=== PATIENT | female | born 1965 | race Caucasian/White ===

== ENCOUNTER → 2016-12-10 | Outpatient (CLI) | payer OTHER ==
[~2016-12-10] MED LIST: ACETAMINOPHEN650 M3 PO; ACID CONTROL150 M1 PO; ALBUTEROL0.83 MG/ML INH; ALBUTEROL17 GM INH; ALBUTEROL20 ml INH; AMITRYPTYLINE PO; AMLODIPINE BESYL5 MG PO; AMOXICILLIN500 M1 PO; APIDRA (NF100 UNITS/ SUBQ; ASPIRIN81 MG PO; ATORVASTATIN CA80 MG PO; AUGMENTIN PO; BACITRACIN15 GM TP; BACTRIM DS TABL1 TA1 PO; BUTALB-ACETAMI1 EACH PO; CARVEDILOL6.25 MG PO; CEFEPIME 22 GM/100 M IV; CELEXA PO; CEPHALEXIN500 M1 PO; CHEWABLE ASPIRI81 MG PO; CIPRO PO; CIPRO XR 500 M500 MG PO; CLARITIN10 MG PO; CLEOCIN PO; CLEOCIN150 MG PO; CLINDAMYCIN HC300 MG PO; CLOPIDOGREL BIS75 MG PO; CLOPIDOGREL75 MG PO; COLACE PO; COREG12.5 M1; COREG6.25 MG PO; CYMBALTA PO; DULOXETINE HCL30 MG PO; FAST RELIEF LAX10 MG RC; FERROUS GLUCON325 M1 PO; FUROSEMIDE40 MG PO; GABAPENTIN800 MG PO; HUMALOG100 U/M1 SUBQ; HUMALOG100 U/M2 SUBQ; HUMALOG100 U/ML; HUMALOG100 U/ML SQ; HUMALOG100 U/ML SUBQ; HUMULIN N VIAL SQ; HUMULIN N300 U/3 ML SUBQ; HUMULIN R100 U/ML SUBQ; HUMULIN R500 UNIT/1; HYDROCODON-ACE1 EACH PO; HYDROCODONE-APA1 T42 PO; IBUPROFEN800 MG PO; IMDUR-ER30 M1 PO; IMDUR-ER30 MG PO; IMDUR-ER60 M1 PO; INVOKANA100 MG PO; JANUVIA; JANUVIA PO; JANUVIA100 MG PO; K-DUR10 MEQ PO; KCL PO; KEFLEX500 M1 PO; KLOR-CON PO; LANTUS INSULIN SQ; LANTUS SOLOSTAR3 ML SUBQ; LANTUS100 U/ML SUBQ; LANTUS100 UNITS/ SUBQ; LASIX PO; LEVAQUIN750 M1 PO; LIPITOR40 MG PO; LIPITOR80 MG PO; LISINOPRIL PO; LISINOPRIL-HCTZ1 T14 PO; LISINOPRIL20 MG PO; LORTAB 5/500 TA1 TA1 PO; LYRICA PO; LYRICA300 MG PO; METFORMIN HCL500 M1 PO; METFORMIN PO; METOPROLOL SUCC25 MG PO; MONTELUKAST SOD10 MG PO; MUCINEX D ER T1 EACH PO; MUCINEX100 MG/5 M PO; MUCUS ER600 MG PO; NEURONTIN800 MG PO; NITROSTAT0.4 MG; NITROSTAT0.4 MG SL; NORCO 5/325 TAB1 TAB PO; NORCO1 TAB 10/3 PO; NORVASC; NORVASC PO; NOVOLIN N100 UNIT/1 SUBQ; OMEPRAZOLE20 M1 PO; ONDANSETRO4 MG/UDTAB PO; PLAVIX PO; PRILOSEC20 M1 PO; PROMETHAZINE D118 ML PO; QUDEXY XR100 MG PO; SINGULAIR PO; SYMBICORT 160/4.6 GM INH; SYMBICORT INH; SYMBICORT80 INH; TRAZODONE HCL100 MG PO; VENLAFAXINE H37.5 M1 PO; VENLAFAXINE H37.5 M2 PO; VITAMIN D 2 PO; VITAMIN D2400 UNIT PO; VITAMIN D350000 UNIT PO; VITAMIN D50000 UNIT PO; WEIGHT LOSS MED PO; WELLBUTRIN XL150 M1 PO; ZESTORETIC 20/11 TAB PO; ZOFRAN ODT4 MG PO; ZOFRAN PO; ZYLOPRIM100 MG; ZYLOPRIM100 MG PO; [UNRECOGNIZED DRUG - REMARK] PO
[2016-12-10 11:33] LABS: ALBUMIN SERUM 3.1 g/dL (3.5-5.0); ALKALINE PHOSPHATASE 117 U/L (32-92); ALT (SGPT) 28 U/L (10-40); AST (SGOT) 20 U/L (10-42); BILIRUBIN,TOTAL 0.4 mg/dL (0.2-2.0); BLOOD UREA NITROGEN 29 mg/dL (9-23); BUN/CREATININE RATIO 26.36; CALCIUM SERUM 8.9 mg/dL (8.4-10.2); CARBON DIOXIDE 27 mmol/L (22-31); CHLORIDE 106 mmol/L (100-111); CHOLESTEROL 163 mg/dL (0-200); CREATININE SERUM 1.1 mg/dL (0.6-1.4); GLOM FILT RATE Estimated 55.7 mL/min (>60); GLUCOSE FASTING 123 mg/dL (70-110); HDL CHOLESTEROL 32 mg/dL (35-95); POTASSIUM 4.6 mmol/L (3.5-5.1); PROTEIN TOTAL SERUM 5.9 g/dL (6.0-8.3); SODIUM 140 mmol/L (135-145)
[2016-12-10 11:34] LABS: TRIGLYCERIDES 415 mg/dL (10-160)
== END | disposition home or self-care (01) ==
LOC: CLAB 10:01
PROVIDERS: Internal Medicine Endocrinology, Diabetes & Metabolism
DX: E11.22 Type 2 diabetes mellitus with diabetic chronic kidney disease (principal); E11.65 Type 2 diabetes mellitus with hyperglycemia; N18.3 Chronic kidney disease, stage 3 (moderate); Z68.35 Body mass index [BMI] 35.0-35.9, adult
CPT/HCPCS: 36415; 80053; 80061; 83036

== ENCOUNTER 2017-01-06 09:33 | Emergency (ER) | payer OTHER ==
[2017-01-06 09:24] LABS: INFLUENZA A NEG (NEG); INFLUENZA B NEG (NEG)
[~2017-01-06 09:33] MED LIST changes: -ALBUTEROL20 ml INH; -CHEWABLE ASPIRI81 MG PO; -CLOPIDOGREL BIS75 MG PO; -HUMULIN R500 UNIT/1; -IMDUR-ER30 MG PO; -JANUVIA; -K-DUR10 MEQ PO; -KEFLEX500 M1 PO; -METOPROLOL SUCC25 MG PO; -NORVASC; -OMEPRAZOLE20 M1 PO; -SYMBICORT 160/4.6 GM INH; -VITAMIN D350000 UNIT PO; -ZOFRAN ODT4 MG PO; -ZYLOPRIM100 MG
[2017-01-06 10:28] LABS: BASOPHIL# 0.1 X10e3 (0-0.3); BASOPHIL% 0.8 % (0-2.5); EOSINOPHIL# 0.2 X10e3 (0-0.7); EOSINOPHIL% 3.2 % (0.0-7.0); HEMATOCRIT 43.6 % (35.0-45.0); HEMOGLOBIN 14.1 gm/dL (12.0-16.0); LYMPHOCYTE# 1.8 X10e3 (1.0-3.5); LYMPHOCYTE% 23.4 % (17.0-45.0); MEAN CELL VOLUME 80.5 FL (83-96); MEAN CORPUSCULAR HGB CONC 32.3 g/dL (30-36); MEAN PLATELET VOLUME 9.3 FL (6.5-11.5); MONOCYTE# 0.4 X10e3 (0-1.0); MONOCYTE% 5.9 % (3.0-12.0); NEUTROPHIL% 66.7 % (40-75); PLATELET COUNT 226 X10e3 (140-420); RED BLOOD COUNT 5.42 X10e (3.90-5.30); RED CELL DISTRIBUTION WIDTH 16.8 % (11.0-15.5); WHITE BLOOD COUNT 7.5 X10e3 (4.0-10.5)
[2017-01-06 10:29] LABS: DIFF IND NO
[2017-01-06 10:33] LABS: URINE SOURCE CLEAN CATCH
[2017-01-06 10:40] LABS: URINE APPEARANCE CLOUDY; URINE BILIRUBIN NEG (NEG); URINE BLOOD 1+ (NEG); URINE COLOR YELLOW; URINE GLUCOSE >1000 MG/DL (NEG); URINE KETONE TRACE (NEG); URINE LEUKOCYTE ESTERASE 1+ (NEG); URINE NITRATE NEG (NEG); URINE PROTEIN 3+ (NEG); URINE SPECIFIC GRAVITY 1.028 (1.003-1.035); URINE UROBILINOGEN 0.2 MG/DL (NEG)
[2017-01-06 10:43] LABS: CULTURE INDICATED? YES; URINE BACTERIA AUWI 4+ (NEGATIVE); URINE SQUAMOUS EPITHELIAL CELL OCC /[HPF]; UWBCS1 AUWI 200-300 (0-5)
[2017-01-06 11:14] LABS: ALBUMIN SERUM 3.7 g/dL (3.5-5.0); ALKALINE PHOSPHATASE 168 U/L (32-92); ALT (SGPT) 26 U/L (10-40); AMYLASE 20 U/L (0-46); AST (SGOT) 18 U/L (10-42); BILIRUBIN,TOTAL 0.6 mg/dL (0.2-2.0); BLOOD UREA NITROGEN 24 mg/dL (9-23); CARBON DIOXIDE 26 mmol/L (22-31); CHLORIDE 96 mmol/L (100-111); CREATININE SERUM 1.2 mg/dL (0.6-1.4); GLOM FILT RATE Estimated 52.3 mL/min (>60); GLUCOSE FASTING 494 mg/dL (70-110); LIPASE 43 U/L (22-51); POTASSIUM 4.2 mmol/L (3.5-5.1); PROTEIN TOTAL SERUM 7.6 g/dL (6.0-8.3); SODIUM 132 mmol/L (135-145)
[2017-01-06 11:16] LABS: BILIRUBIN, DIRECT <0.1 mg/dL (0.0-0.2); BILIRUBIN,INDIRECT 0.5 mg/dL (0.0-0.9)
[2017-03-29] MEDS ORDERED: ALBUTEROL20 ml INH (12:25)
[2017-03-29] MEDS ORDERED: ZYLOPRIM100 MG (12:26)
[2017-03-29] MEDS ORDERED: HUMULIN R500 UNIT/1 SUBQ (12:29)
[2017-03-29] MEDS ORDERED: VITAMIN D350000 UNIT PO (12:29)
[2017-03-29] MEDS ORDERED: FUROSEMIDE40 MG PO (12:29)
[2017-03-29] MEDS ORDERED: COREG12.5 M1 (12:30)
[2017-03-29] MEDS ORDERED: CLOPIDOGREL BIS75 MG PO (12:30)
[2017-03-29] MEDS ORDERED: LYRICA300 MG PO (12:30)
[2017-03-29] MEDS ORDERED: OMEPRAZOLE20 M1 PO (12:31)
[2017-03-29] MEDS ORDERED: SYMBICORT 160/4.6 GM INH (12:32)
[2017-03-29] MEDS ORDERED: MONTELUKAST SOD10 MG PO (12:33)
[2017-03-29] MEDS ORDERED: METOPROLOL SUCC25 MG PO (12:33)
[2017-07-02] MEDS ORDERED: TRESIBA FL100 UNIT/1 SUBQ (18:16)
== END 2017-01-06 13:28 | disposition home or self-care (01) ==
LOC: CED 09:33
PROVIDERS: Emergency Medicine
DX: N39.0 Urinary tract infection, site not specified (principal); E11.65 Type 2 diabetes mellitus with hyperglycemia
CPT/HCPCS: 36415; 80048; 80076; 81003; 82150; 83690; 85025; 87086; 87088; 87186; 87804; 96361; 96374; 96375; 99284; J0500; J1815; J2405

== ENCOUNTER 2017-01-06 21:14 | Emergency (ER) | payer OTHER ==
--- NOTE | ~2017-01-06 | CT4 ---
[facility] A Service of [facility] RADIOLOGY TEXT RESULTS PATIENT: MARY KATE LUCAS LOCATION: [facility] : 65 UNIT #: [id number] AGE: [address]: Jose Bender MD SEX: F ORDER DR: [id number] [facility] [address] [place], [place] [address] [id number] MR#: [id number] Acc #: [id number] NAME: MARY KATE LUCAS : 1965 SEX: F STUDY DATE/TIME: 01/06/2017 21:55 UNIT: EILS ROOM: STUDY DESCRIPTION: CT Abd and Pelv Wo Cont Attending Physician: Jose Bender M.D. Ordering Physician: Jose Bender M.D. Primary Care Physician: No Primary Care Physician MEDICAL IMAGING REPORT This report is preliminary unless electronic signature is present EXAM CT abdomen and pelvis without contrast. HISTORY Nausea, vomiting, and diarrhea starting this morning. Diffuse abdominal pain, periumbilical region. TECHNIQUE Axial images performed through the abdomen and pelvis without contrast. Multiplanar reconstructed images reviewed at a workstation. This CT exam was performed with one or more of the following radiation dose reduction techniques: automatic exposure control, adjustment of mA and/or kV according to patient size, and iterative reconstruction. FINDINGS Lung bases unremarkable. Liver demonstrates diffuse fatty infiltration. The gallbladder and spleen appear normal. Pancreas, kidneys, and adrenal glands are unremarkable. No free air or free fluid. The visualized GI tract unremarkable. Retroperitoneum unremarkable. PELVIS: Bladder, uterus, and adnexa appear normal. Diffuse degenerative change noted of the lumbar spine. Small umbilical hernia containing omental fat only. Generalized obesity. IMPRESSION 1. No acute intraabdominal or intrapelvic pathology identified. 2. Diffuse hepatic steatosis. 3. Multilevel degenerative disc changes of the lumbar spine. Dictated by... [facility] A Service of [facility] RADIOLOGY TEXT RESULTS PATIENT: MARY KATE LUCAS LOCATION: [facility] : 65 UNIT #: [id number] AGE: [address]: Jose Bender MD SEX: F ORDER DR: Marcus Honeycutt M.D. THIS IS AN ELECTRONICALLY VERIFIED REPORT Marcus Honeycutt M.D. at 01/07/2017 8:10 PM JOSUE/yinka TD: 01/07/2017 11:47 JOB #: [id number] MEDICAL IMAGING REPORT Page 1 of 1 COPY
[2017-01-06 23:10] LABS: BASOPHIL# 0.1 X10e3 (0-0.3); BASOPHIL% 0.7 % (0-2.5); EOSINOPHIL# 0.2 X10e3 (0-0.7); EOSINOPHIL% 2.5 % (0.0-7.0); HEMATOCRIT 39.4 % (35.0-45.0); HEMOGLOBIN 12.8 gm/dL (12.0-16.0); LYMPHOCYTE# 3.1 X10e3 (1.0-3.5); LYMPHOCYTE% 32.2 % (17.0-45.0); MEAN CELL VOLUME 79.4 FL (83-96); MEAN CORPUSCULAR HEMOGLOBIN 25.8 PG (28-34); MEAN CORPUSCULAR HGB CONC 32.4 g/dL (30-36); MONOCYTE# 0.5 X10e3 (0-1.0); MONOCYTE% 5.3 % (3.0-12.0); NEUTROPHIL# 5.7 X10e3 (1.5-7.1); NEUTROPHIL% 59.3 % (40-75); PLATELET COUNT 236 X10e3 (140-420); RED BLOOD COUNT 4.96 X10e (3.90-5.30); RED CELL DISTRIBUTION WIDTH 16.4 % (11.0-15.5); WHITE BLOOD COUNT 9.7 X10e3 (4.0-10.5)
[2017-01-06 23:12] LABS: DIFF IND NO
[2017-01-06 23:35] LABS: ALBUMIN SERUM 3.3 g/dL (3.5-5.0); BETA HYDROXYBUTYRATE 0.08 MMOL/L (0.02-0.27); BILIRUBIN, DIRECT 0.1 mg/dL (0.0-0.2); BILIRUBIN,INDIRECT 0.5 mg/dL (0.0-0.9); BILIRUBIN,TOTAL 0.6 mg/dL (0.2-2.0); CALCIUM SERUM 8.9 mg/dL (8.4-10.2); GLOM FILT RATE Estimated 65.2 mL/min (>60); POTASSIUM 3.6 mmol/L (3.5-5.1); PROTEIN TOTAL SERUM 6.8 g/dL (6.0-8.3)
[2017-01-06 23:49] LABS: URINE SOURCE CLEAN CATCH
[2017-01-06 23:52] LABS: URINE APPEARANCE CLOUDY; URINE BILIRUBIN NEG (NEG); URINE BLOOD 1+ (NEG); URINE COLOR YELLOW; URINE GLUCOSE >1000 MG/DL (NEG); URINE KETONE NEG (NEG); URINE LEUKOCYTE ESTERASE TRACE (NEG); URINE NITRATE NEG (NEG); URINE PROTEIN 3+ (NEG); URINE SPECIFIC GRAVITY 1.035 (1.003-1.035); URINE UROBILINOGEN 0.2 MG/DL (NEG)
[2017-01-06 23:54] LABS: CULTURE INDICATED? YES; URINE BACTERIA AUWI 4+ (NEGATIVE); URINE SQUAMOUS EPITHELIAL CELL OCC /[HPF]; UWBCS1 AUWI 100-200 (0-5)
[2017-03-29] MEDS ORDERED: ALBUTEROL20 ml INH (12:25)
[2017-03-29] MEDS ORDERED: ZYLOPRIM100 MG (12:26)
[2017-03-29] MEDS ORDERED: FUROSEMIDE40 MG PO (12:29)
[2017-03-29] MEDS ORDERED: VITAMIN D350000 UNIT PO (12:29)
[2017-03-29] MEDS ORDERED: HUMULIN R500 UNIT/1 SUBQ (12:29)
[2017-03-29] MEDS ORDERED: CLOPIDOGREL BIS75 MG PO (12:30)
[2017-03-29] MEDS ORDERED: COREG12.5 M1 (12:30)
[2017-03-29] MEDS ORDERED: LYRICA300 MG PO (12:30)
[2017-03-29] MEDS ORDERED: OMEPRAZOLE20 M1 PO (12:31)
[2017-03-29] MEDS ORDERED: SYMBICORT 160/4.6 GM INH (12:32)
[2017-03-29] MEDS ORDERED: MONTELUKAST SOD10 MG PO (12:33)
[2017-03-29] MEDS ORDERED: METOPROLOL SUCC25 MG PO (12:33)
[2017-07-02] MEDS ORDERED: TRESIBA FL100 UNIT/1 SUBQ (18:16)
== END 2017-01-07 03:20 | disposition home or self-care (01) ==
LOC: CED 21:14
PROVIDERS: Emergency Medicine
DX: E11.65 Type 2 diabetes mellitus with hyperglycemia (principal); I10 Essential (primary) hypertension; R19.7 Diarrhea, unspecified; F17.200 Nicotine dependence, unspecified, uncomplicated
CPT/HCPCS: 36415; 74176; 80048; 80076; 81003; 82010; 82947; 83690; 85025; 87086; 96361; 96365; 96375; 99284; J0696; J2405; J2550

== ENCOUNTER 2017-01-15 23:10 | Emergency (ER) | payer OTHER ==
--- NOTE | ~2017-01-15 | CR72 ---
[facility] [[email or web address] A Service of [facility] RADIOLOGY TEXT RESULTS PATIENT: MARY KATE LUCAS LOCATION: SED : 65 UNIT #: [id number] AGE: [address]: Nimesh Esteves MD SEX: F ORDER DR: [id number] [place] [address] [id number] E MR#: [id number] Acc #: [id number] NAME: MARY KATE LUCAS : 1965 SEX: F STUDY DATE/TIME: 01/16/2017 0:32 UNIT: SED ROOM: STUDY DESCRIPTION: CR Chest Single View Portable Attending Physician: Nimesh Esteves M.D. Ordering Physician: Nimesh Esteves M.D. Primary Care Physician: Primary Care Physician No MEDICAL IMAGING REPORT This report is preliminary unless electronic signature is present. EXAM Portable chest INDICATIONS Shortness of air since yesterday. PROCEDURE Frontal view chest COMPARISON 10/20/2016 FINDINGS Heart size is stable, moderately enlarged. No new dense consolidation, effusion or pneumothorax. IMPRESSION No active process. Stable cardiomegaly. Dictated by... Tano Nunez M.D. THIS IS AN ELECTRONICALLY VERIFIED REPORT Tano Nunez M.D. at 01/16/2017 9:56 PM EVANGELIST/santiago TD: 01/16/2017 07:30 JOB #: [id number] MEDICAL IMAGING REPORT Page 1 of 1
[2017-01-15] MEDS ORDERED: NORVASC (23:20)
[2017-01-15] MEDS ORDERED: HUMULIN R500 UNIT/1 (23:20)
[2017-01-15] MEDS ORDERED: JANUVIA (23:20)
[2017-01-16 00:19] LABS: BASOPHIL# 0.1 X10e3 (0-0.3); EOSINOPHIL# 0.2 X10e3 (0-0.7); EOSINOPHIL% 2.5 % (0.0-7.0); HEMATOCRIT 41.6 % (35.0-45.0); HEMOGLOBIN 13.7 gm/dL (12.0-16.0); LYMPHOCYTE# 1.8 X10e3 (1.0-3.5); LYMPHOCYTE% 24.3 % (17.0-45.0); MEAN CELL VOLUME 80.1 FL (83-96); MEAN CORPUSCULAR HEMOGLOBIN 26.4 PG (28-34); MEAN PLATELET VOLUME 8.9 FL (6.5-11.5); MONOCYTE# 0.6 X10e3 (0-1.0); MONOCYTE% 7.7 % (3.0-12.0); NEUTROPHIL# 4.9 X10e3 (1.5-7.1); NEUTROPHIL% 64.5 % (40-75); PLATELET COUNT 212 X10e3 (140-420); RED CELL DISTRIBUTION WIDTH 16.5 % (11.0-15.5); WHITE BLOOD COUNT 7.5 X10e3 (4.0-10.5)
[2017-01-16 00:20] LABS: DIFF IND NO
[2017-01-16 00:30] LABS: ALBUMIN SERUM 3.3 g/dL (3.5-5.0); ALKALINE PHOSPHATASE 108 U/L (32-92); ALT (SGPT) 33 U/L (10-40); AST (SGOT) 27 U/L (10-42); BILIRUBIN, DIRECT <0.1 mg/dL (0.0-0.2); BILIRUBIN,INDIRECT 0.5 mg/dL (0.0-0.9); BILIRUBIN,TOTAL 0.6 mg/dL (0.2-2.0); BLOOD UREA NITROGEN 19 mg/dL (9-23); BUN/CREATININE RATIO 17.27; CALCIUM SERUM 8.7 mg/dL (8.4-10.2); CARBON DIOXIDE 24 mmol/L (22-31); CHLORIDE 100 mmol/L (100-111); CREATININE SERUM 1.1 mg/dL (0.6-1.4); GLOM FILT RATE Estimated 58.1 mL/min (>60); GLUCOSE FASTING 435 mg/dL (70-110); LIPASE 29 U/L (22-51); PROTEIN TOTAL SERUM 6.7 g/dL (6.0-8.3); SODIUM 134 mmol/L (135-145)
[2017-01-16 00:47] LABS: POC - CKMB 3.6 ng/mL (0.0-7.9); POC - TROPONIN <0.05 ng/mL (<=0.05)
[2017-01-16 01:22] LABS: URINE SOURCE CLEAN CATCH
[2017-01-16 01:24] LABS: URINE APPEARANCE CLEAR; URINE BILIRUBIN NEG (NEG); URINE BLOOD 1+ (NEG); URINE COLOR YELLOW; URINE GLUCOSE 300 MG/DL (NORM); URINE KETONE NEG (NEG); URINE LEUKOCYTE ESTERASE NEG (NEG); URINE NITRATE NEG (NEG); URINE PH 6.5 (5-8); URINE PROTEIN 2+ (NEG); URINE UROBILINOGEN 0.2 MG/DL (NORM)
[2017-01-16 01:27] LABS: MICRO INDICATED? YES
[2017-01-16 01:30] LABS: CULTURE INDICATED? YES; URINE BACTERIA 4+ (NEG); URINE MUCUS PRESENT; URINE RBC 25-50 /[HPF] (0-2); URINE SQUAMOUS EPITHELIAL CELL FEW /[HPF]; URINE YEAST PRESENT
[2017-01-16] MEDS ORDERED: KEFLEX500 M1 PO (01:47)
[2017-01-16] MEDS ORDERED: ZOFRAN ODT4 MG PO (01:47)
[2017-03-29] MEDS ORDERED: ALBUTEROL20 ml INH (12:25)
[2017-03-29] MEDS ORDERED: ZYLOPRIM100 MG (12:26)
[2017-03-29] MEDS ORDERED: FUROSEMIDE40 MG PO (12:29)
[2017-03-29] MEDS ORDERED: VITAMIN D350000 UNIT PO (12:29)
[2017-03-29] MEDS ORDERED: HUMULIN R500 UNIT/1 SUBQ (12:29)
[2017-03-29] MEDS ORDERED: LYRICA300 MG PO (12:30)
[2017-03-29] MEDS ORDERED: CLOPIDOGREL BIS75 MG PO (12:30)
[2017-03-29] MEDS ORDERED: COREG12.5 M1 (12:30)
[2017-03-29] MEDS ORDERED: OMEPRAZOLE20 M1 PO (12:31)
[2017-03-29] MEDS ORDERED: SYMBICORT 160/4.6 GM INH (12:32)
[2017-03-29] MEDS ORDERED: MONTELUKAST SOD10 MG PO (12:33)
[2017-03-29] MEDS ORDERED: METOPROLOL SUCC25 MG PO (12:33)
[2017-07-02] MEDS ORDERED: TRESIBA FL100 UNIT/1 SUBQ (18:16)
== END 2017-01-16 01:54 | disposition home or self-care (01) ==
LOC: SED 23:10
PROVIDERS: Emergency Medicine
DX: K29.00 Acute gastritis without bleeding (principal); E11.65 Type 2 diabetes mellitus with hyperglycemia; N39.0 Urinary tract infection, site not specified; Z88.8 Allergy status to other drugs, medicaments and biological substances; F32.9 Major depressive disorder, single episode, unspecified
CPT/HCPCS: 36415; 71010; 80048; 80076; 81003; 82010; 82553; 83690; 83874; 84484; 85025; 87086; 87186; 96361; 96374; 96375; 99284; J2405

== ENCOUNTER → 2017-04-05 | Day surgery (SDC) | payer OTHER ==
[~2017-04-05] MED LIST changes: +ALBUTEROL20 ml INH; +CHEWABLE ASPIRI81 MG PO; +CLOPIDOGREL BIS75 MG PO; +HUMULIN R500 UNIT/1; +HUMULIN R500 UNIT/1 SUBQ; +IMDUR-ER30 MG PO; +JANUVIA; +K-DUR10 MEQ PO; +KEFLEX500 M1 PO; +METOPROLOL SUCC25 MG PO; +NORVASC; +OMEPRAZOLE20 M1 PO; +SYMBICORT 160/4.6 GM INH; +TRESIBA FL100 UNIT/1 SUBQ; +VITAMIN D350000 UNIT PO; +ZOFRAN ODT4 MG PO; +ZYLOPRIM100 MG
--- NOTE | ~2017-04-05 | OR ---
Unit #: [id number] #: [id number] Patient: MARY KATE LUCAS [id number] [address] [place], [place] [address] [id number] MR#: [id number] NAME: MARY KATE LUCAS ROOM: Date of Procedure: 04/05/2017 Admission Date: 04/05/2017 Surgeon: Didier Mccracken M.D. : 1965 Attending Physician: Didier Mccracken M.D. Primary Care Physician: Gladys Parisi M.D. OPERATIVE REPORT PROCEDURE PERFORMED Colonoscopy to cecum and esophagogastroduodenoscopy with biopsies. INDICATIONS FOR PROCEDURE A 51-year-old with dysphagia and chronic GERD symptoms, undergoing evaluation with upper endoscopy, also average risk for colorectal cancer, undergoing colonoscopy. MEDICATIONS Monitored anesthesia. POSTOPERATIVE FINDINGS 1. LA grade D esophagitis with multiple ulcers in distal esophagus along with hiatal hernia and nonobstructing esophageal ring. Biopsies taken. 2. Chronic appearing gastritis and duodenitis. Biopsies taken in the antrum and body. 3. Colonoscopy completed to cecum. 4. Good prep. 5. No polyps, masses, or colitis. PLAN PPI therapy to be doubled. Avoid NSAIDs. Follow up on the pathology report. Repeat upper endoscopy in 3 to 6 months. DESCRIPTION OF PROCEDURE The patient was explained of the procedure, risks, and benefits along with risks and benefits of anesthesia. She was brought to the endoscopy room. Propofol anesthesia was given. Bite block was placed. The scope was passed down the mouth into the esophagus, stomach, duodenum, and distal duodenum. Findings as described. Biopsies taken. Gently, I pulled it out of the patient's mouth. She tolerated it well. At this time, she was turned around and repositioned for colonoscopy. Rectal exam was done, which was normal. Colonoscope was lubricated, passed up the rectum, advanced under direct vision all the way to the cecum. Cecum was identified by ileocecal valve and appendiceal orifice. No polyps, masses, or colitis was seen. Mucosa was normal and healthy. I retroflexed in the rectum, small hemorrhoids seen. Gently, the scope was pulled out. She tolerated it well. Dictated by... Unit #: [id number] #: [id number] Patient: LANCE,MARY KATE ALTAGRACIAShayy Gunn/mariajose TD: 04/05/2017 22:13 JOB #: [id number] OPERATIVE REPORT Page 1 of 1 X Didier Mccracken MD PROCEDURE OPERATIVE NOTE
== END | disposition home or self-care (01) ==
LOC: COPS 05:53
DX: Z12.11 Encounter for screening for malignant neoplasm of colon (principal); K29.50 Unspecified chronic gastritis without bleeding; K44.9 Diaphragmatic hernia without obstruction or gangrene; K22.2 Esophageal obstruction; K29.80 Duodenitis without bleeding; K22.10 Ulcer of esophagus without bleeding; K64.9 Unspecified hemorrhoids; I11.0 Hypertensive heart disease with heart failure; I50.9 Heart failure, unspecified; E11.9 Type 2 diabetes mellitus without complications; I25.2 Old myocardial infarction; J43.9 Emphysema, unspecified; J45.909 Unspecified asthma, uncomplicated; F17.210 Nicotine dependence, cigarettes, uncomplicated; Z87.440 Personal history of urinary (tract) infections; Z86.73 Personal history of transient ischemic attack (TIA), and cerebral infarction without residual deficits; Z88.6 Allergy status to analgesic agent; Z79.4 Long term (current) use of insulin; Z79.51 Long term (current) use of inhaled steroids; Z98.890 Other specified postprocedural states
CPT/HCPCS: 82947; 88305; 88312

== ENCOUNTER 2017-06-03 21:29 | Inpatient (IN) | payer OTHER ==
[~2017-06-03] VITALS: Ht 170.2 cm; Wt 118.8 kg
--- NOTE | ~2017-06-03 | HP ---
Unit #: [id number] #: [id number] Patient: MARY KATE LUCAS [id number] [facility] [address] [place], [place] [address] [id number] I MR#: [id number] NAME: MARY KATE LUCAS ROOM: [facility] Age: 51 Sex: F Admission Date: 06/04/2017 : 1965 Attending Physician: Oneil Cruz M.D. Primary Care Physician: Gladys Parisi M.D. HISTORY AND PHYSICAL CHIEF COMPLAINT Chest pain. HISTORY OF PRESENT ILLNESS The patient is a 51-year-old female who has seen [facility] in the past; however, the patient is requesting to follow up with Dr. Cruz with [facility]. The patient's sees Dr. Cruz, and she would like to also see him. On February 27, 2015 the patient did undergo a left heart catheterization, which revealed normal left main, left anterior descending 75% to 80% in the second diagonal, mild anterior myocardial bridging in the mid LAD. Left circumflex was normal. Mid RCA 50%. Acute RV branch 40%. Her ejection fraction was 50% to 55%. At that time, she did undergo medical management. Additional past medical history includes hypertension, hyperlipidemia, diabetes, TIA, obesity, obstructive sleep apnea with CPAP compliance and peripheral arterial disease. A duplex from March of 2016 showed small plaque, less than 50%, stenosis in the internal and external carotids bilaterally. She also has a past medical history of COPD, and she is a reformed smoker. The patient states that she has been becoming increasingly short of breath at rest and with exertion for the past couple of days. Yesterday, she described stabbing chest pain associated with shortness of breath. The chest pain was worse with a cough. The pain, at its worst, was an 8/10. This pain was intermittent, happened off and on all day. The patient does endorse chills, shortness of breath, chest pain and palpitations. She also endorses that she has had a productive cough with dark brown sputum. She denied any radiation of pain, diaphoresis, nausea or vomiting. In the emergency department the patient's niubg-qz-hbvj troponin was less than 0.05. Her EKG was unremarkable. She did receive full-dose aspirin and did receive nitroglycerin 0.4 mg sublingual x3. She states that this did make her chest pain feel better. Her chest x-ray showed cardiomegaly with no active disease. She will be admitted for further workup. PAST MEDICAL HISTORY 1. Coronary artery disease status post left heart cath on February 17, 2015, which again, showed left main normal. Left anterior descending 75% to 80% in the second diagonal. Mild anterior myocardial bridging in the mid LAD. Left circumflex normal. Mid right coronary artery 50% and acute RV branch 40%. Her ejection fraction was 50% to 55%, and she was treated medically. Unit #: [id number] #: [id number] Patient: MARY KATE LUCAS 2. Two-D echocardiogram from September of 2013 showed normal left ventricular ejection fraction, normal valves. 3. Hypertension. 4. Hyperlipidemia. 5. Diabetes. 6. Peripheral arterial disease with history of left carotid disease. Carotid duplex from March of 2016 showed small amount of plaque, less than 50%, in the internal and external carotids bilaterally. 7. COPD. 8. Syncope. 9. Reformed tobaccoism. 10. Eclampsia. 11. Broken left foot, in a boot. 12. Obesity with a BMI greater than 35. 13. Obstructive sleep apnea. PAST SURGICAL HISTORY 1. Cardiac catheterization, as noted above. 2. Left shoulder surgery. 3. . 4. I and D of left foot ulcer. ALLERGIES Pitocin. HOME MEDICATIONS 1. Albuterol 2 puffs inhalation q.4 hours p.r.n. shortness of breath. 2. Allopurinol 100 mg p.o. daily. 3. Humulin RU-500 t.i.d. 4. Vitamin D 5,000 units p.o. on Mondays. 5. Lasix 40 mg p.o. b.i.d. 6. Lyrica 30 mg p.o. b.i.d. 7. Coreg 12.5 mg p.o. b.i.d. 8. Plavix 75 mg p.o. daily. 9. Omeprazole 20 mg p.o. daily. 10. Symbicort 160/4.5 mcg 2 puffs inhalation b.i.d. 11. Metoprolol 25 mg p.o. b.i.d. 12. Singulair 10 mg p.o. daily. FAMILY HISTORY She endorses that her brother had heart disease, but details are unavailable. SOCIAL HISTORY The patient lives with her . She quit smoking in September of 2015 and denies any tobacco or illicit drug abuse. REVIEW OF SYSTEMS A 10-point review of systems has been completed and is considered, otherwise, negative unless indicated in the HPI. PHYSICAL EXAMINATION VITAL SIGNS: Temperature 98.5, heart rate 82, respirations 20, blood pressure 136/55. She is oxygenating 93%. She is 5'7" and weighs 250 pounds. HEENT: Head is atraumatic, normocephalic. Pupils are equal, round and reactive. Extraocular movements are intact. No drainage from ears or nares. NECK: Supple. Trachea is midline. HEART: S1, S2. Regular rate and rhythm. No murmurs, rubs or gallops Unit #: [id number] #: [id number] Patient: MARY KATE LUCAS appreciated. ABDOMEN: Abdomen is soft, nontender, nondistended. Bowel sounds are positive in all 4 quadrants. No hepatosplenomegaly is appreciated. RESPIRATORY: The lungs are wheezy bilaterally. SKIN: Skin appears to be warm, dry and intact without any unusual rashes or lesions. EXTREMITIES: No clubbing or cyanosis. She is wearing a boot on her left foot secondary to broken bones. NEUROLOGIC: She is alert and oriented x3. She is pleasant and conversant. Cranial nerves II-XII are intact. No focal deficits. DIAGNOSTIC STUDIES IMAGING: Chest x-ray shows cardiomegaly. No active disease. CARDIOVASCULAR: EKG shows sinus tachycardia. LABORATORY: White blood cells 9.6, hemoglobin 12, hematocrit 35.6, platelets 191. Sodium 132, potassium 3.8, chloride 99, CO2 22, BUN 18, creatinine 1, glucose 472. TSH 1.88. Scfiy-dy-xmet troponin is less than 0.05. ASSESSMENT 1. Chest pain. 2. Coronary artery disease with history of cath in February of 2015. 3. Acute COPD exacerbation. 4. Hypertension. 5. Hyperlipidemia. 6. Obstructive sleep apnea with CPAP. 7. Diabetes type 2, uncontrolled. 8. Reformed tobaccoism. L PLAN At this time we will check a two-D echocardiogram and trend her cardiac enzymes. I will add aspirin 81 mg p.o. daily and Imdur 30 mg p.o. daily. I will consult pulmonary regarding her COPD, and I will consult Dr. Pelayo regarding her diabetes. The patient will be started on a consistent carb diet. She can be up ad elmer. Dr. Cruz will evaluate the patient and determine if any further ischemic evaluation is needed. Dictated by Aggie Jones A.P.R.N. for Oneil Cruz M.D. AM/sarah TD: 06/04/2017 13:27 JOB #: [id number] Unit #: [id number] #: [id number] Patient: MARY KATE LUCAS HISTORY AND PHYSICAL Page 1 of 1 X Aggie Jones [employer] P[employer]ER X HISTORY AND PHYSICAL
--- NOTE | ~2017-06-03 | EKG ---
PATIENT: MARY KATE LUCAS UNIT #: [id number] Ventricular Rate: 108 BPM Atrial Rate: 108 BPM P-R Interval: 164 ms QRS Duration: 78 ms Q-T Interval: 354 ms QTC Calculation(Bezet): 474 ms P [place]: 59 degrees Calculated R [place]: 52 degrees Diagnosis Line: Sinus tachycardia Diagnosis Line: Nonspecific T wave abnormality Diagnosis Line: Abnormal ECG Diagnosis Line: No previous ECGs available Diagnosis Line: Confirmed by ASIA SOSA MD ([id number]) on 06/04/2017 Diagnosis Line: 5:59:42 PM INTERPRETING MD: IAN HOLM
--- NOTE | ~2017-06-03 | CO ---
Unit #: [id number] #: [id number] Patient: MARY KATE LUCAS [id number] [address] [place], [place] [address] [id number] MR#: [id number] NAME: MARY KATE LUCAS ROOM: [facility] Age: 51 Sex: F Admission Date: 06/04/2017 : 1965 Attending Physician: Oneil Cruz M.D. Primary Care Physician: Gladys Parisi M.D. CONSULTATION REPORT REASON FOR CONSULTATION Followup of sleep apnea and respiratory distress. CHIEF COMPLAINT Chest pain. 51-year-old female with a past medical history significant for obstructive sleep apnea, on CPAP, TIA, diabetes mellitus, hypertension, presents with a complaint of chest pain. Admitted with obstructive sleep apnea, COPD as well. Admitted with impression of chest pain and acute exacerbation of COPD. I am seeing the patient at the bedside. She is complaining of cough, shortness of breath and some (1) . Denies any nausea, vomiting, diarrhea. REVIEW OF SYSTEMS Positive for pallor. No edema, no cyanosis, no jaundice. The rest as per History of Present Illness. The rest of the twelve point review of systems has been reviewed and is negative. PAST MEDICAL HISTORY 1. Coronary artery disease. 2. Hypertension. 3. Dyslipidemia. 4. Diabetes mellitus. 5. Peripheral vascular disease. 6. COPD. 7. Syncope. 8. Ex-smoker. 9. Obstructive sleep apnea. SURGICAL HISTORY 1. . 2. Left shoulder surgery. ALLERGIES Pitocin. MEDICATIONS 1. Albuterol. 2. Allopurinol. 3. Humulin. 4. Vitamin D. Unit #: [id number] #: [id number] Patient: MARY KATE LUCAS 5. Lasix. 6. Lyrica. 7. Coreg. 8. Plavix. 9. Omeprazole. 10. Symbicort. 11. Metoprolol. 12. Singulair. SOCIAL HISTORY Quit smoking in 2014. No drugs, no alcohol abuse. PHYSICAL EXAMINATION VITAL SIGNS: Temperature 98, pulse 87, respirations 12, blood pressure 130/70. NEUROLOGICAL: Awake, alert, oriented. No neuro deficit. HEENT: PERRLA. NECK: Supple. No JVD. CHEST: Bilateral air entry, bilateral mild rhonchi. GI: Nontender, soft. Bowel sounds positive. EXTREMITIES: No edema. SKIN: No rashes, no ulcers. LYMPHATIC: No lymphadenopathy. DIAGNOSTIC STUDIES Labs and imaging has been reviewed. ASSESSMENT AND PLAN 1. Acute exacerbation of COPD. 2. Coronary artery disease. 3. Hypertension. 4. Dyslipidemia. 5. Sleep apnea. 6. Diabetes mellitus. Plan is to continue bronchodilators. Patient at baseline. Will continue diuretics as per cardiology and control sugars. Will start her on p.o. doxycycline for five days. Restart home CPAP. We will continue to monitor. Please see orders for detailed plan. I would like to thank you for your kind consideration to involve me in taking care of this patient. Dictated by... Shayy Coleman/shanell TD: 06/05/2017 06:47 JOB #: [id number] Unit #: [id number] #: [id number] Patient: MARY KATE LUCAS CONSULTATION REPORT Page 1 of 1 X Fidel Ferreira MD X CONSULTATION REPORT
--- NOTE | ~2017-06-03 | CR72 ---
[facility] A Service of [facility] RADIOLOGY TEXT RESULTS PATIENT: MARY KATE LUCAS LOCATION: [facility] 307-01 : [birth year] UNIT #: [id number] AGE: [address]: Oneil Cruz MD SEX: F ORDER DR: [id number] [facility] [address] [place], [place] [address] [id number] MR#: [id number] Acc #: [id number] NAME: MARY KATE LUCAS : 1965 SEX: F STUDY DATE/TIME: 06/03/2017 23:02 UNIT: CEDOF ROOM: 13405 STUDY DESCRIPTION: CR Chest Single View Portable Attending Physician: Oneil Cruz M.D. Ordering Physician: Narayan Posadas M.D. Primary Care Physician: Gladys Parisi M.D. MEDICAL IMAGING REPORT This report is preliminary unless electronic signature is present EXAM Chest x-ray, 06/03/2017. HISTORY 51-year-old female in the ED complaining of new onset left side chest pain and shortness of air beginning earlier today. TECHNIQUE AP portable chest x-ray. FINDINGS Limited examination secondary to patient body habitus and AP portable technique. Ygvy-hu-uyncasrh cardiomegaly is stable. Lung volumes are low, but the lungs are grossly clear. No visible airspace consolidation or pleural effusion. No significant change since 01/16/2017. IMPRESSION Cardiomegaly. No definite active disease. No change since 01/16/2017. Dictated by... Conrad Ornelas M.D. THIS IS AN ELECTRONICALLY VERIFIED REPORT Conrad Ornelas M.D. at 06/04/2017 9:52 PM RGW/yinka TD: 06/04/2017 08:41 JOB #: [id number] MEDICAL IMAGING REPORT Page 1 of 1 COPY
--- NOTE | ~2017-06-03 | BMI ---
[facility] Nutrition Therapy DATE: 06/05/17 Patient: MARY KATE LUCAS Physician: CANDICE Address: [address] [address] Room/Bed: [address] [place] [address], Zip: [place] [address] Admit Date: 06/04/17 Date of : [birth year] Height: 5 7 Weight: 268 121.6 HIGH BMI NOTE: ANTHROPOMETRICS: HT: 67" WT: 121.6 KG BMI: 42 DIET: HH/ 2 GRAM NA+/ FLUID RESTRICTION RECOMMENDATIONS: 1. CONTINUE CURRENT DIET TO PROMOTE GRADUAL WEIGHT LOSS TOWARDS A HEALTHY BMI RANGE. Respectfully, KAYLYNN LEE RD, LD [employer] and Nutrition[employer] Services [facility] cc: client file
--- NOTE | ~2017-06-03 | DS ---
Unit #: [id number] #: [id number] Patient: MARY KATE LUCAS [id number] [address] [place], [place] [address] [id number] I MR#: [id number] NAME: MARY KATE LUCAS ROOM: [facility] Age: 51 Sex: F Admission Date: 06/04/2017 : 1965 Discharge Date: 06/08/2017 Attending Physician: Oneil Cruz M.D. Primary Care Physician: Gladys Parisi M.D. DISCHARGE SUMMARY ADMITTING DIAGNOSES 1. Mfmdf-nx-safpzhf diastolic congestive heart failure. 2. Chest pain, atypical. 3. Coronary artery disease with history of cath in February 2015. 4. Acute exacerbation of chronic obstructive pulmonary disease. 5. Hypertension. 6. Hyperlipidemia. 7. Obstructive sleep apnea with CPAP. 8. Obesity. 9. Diabetes mellitus. DISCHARGE DIAGNOSES 1. Pyiqt-re-wdyzptv diastolic congestive heart failure, compensated at the time of discharge. 2. Chest pain, atypical, resolved. 3. Coronary artery disease with history of cath in February 2015. 4. Acute exacerbation of chronic obstructive pulmonary disease, resolved. 5. Hypertension. 6. Hyperlipidemia. 7. Obstructive sleep apnea with CPAP. 8. Obesity. 9. Diabetes mellitus. CONSULTING PHYSICIANS 1. Dr. Palomo for pulmonology 2. Dr. Pelayo for internal medicine and diabetes management. HOSPITAL COURSE The patient is a 51-year-old female with history of diastolic congestive heart failure, coronary artery disease, and chronic obstructive pulmonary disease, who presented to the emergency department on 06/03/2017 with complaints of shortness of breath and chest pain. PR was ruled out with serial negative troponins. Dr. Ferreira was consulted for chronic obstructive pulmonary disease management and Dr. Pelayo was consulted for diabetes management. The patient was placed on a Bumex drip and was also found to have a urinary tract infection and started on antibiotics. Her insulin was adjusted. She had a 2D echo/Doppler on 06/04/2017 which showed an ejection fraction of 55% to 60%. The right atrium is moderately dilated. There was mild enlargement of the right ventricular cavity with mildly reduced RV function. There is fqcu-da-gdvqpdch TR with a RVSP of 44 mmHg. There is mild AI. The patient was originally on metoprolol and Coreg and her metoprolol was discontinued. The patient's Bumex drip was changed to Bumex 2 mg IV b.i.d. on 06/07/2017. On the day of discharge, her symptoms had improved. Her oxygen is at baseline. She does still Unit #: [id number] #: [id number] Patient: MARY KATE LUCAS notice some shortness of breath with exertion, but overall, feels much better. DIAGNOSTIC STUDIES LABORATORY: Labs from 06/08/2017: sodium 138, potassium 3.8, chloride is 98, CO2 30, glucose 248, BUN 33, creatinine 1.2, magnesium 2.0. PHYSICAL EXAMINATION VITAL SIGNS: Blood pressure is 125/57, heart rate 69 and regular, respirations 16 and regular, and temperature is 97.3. O2 sat is 98% on two liters of oxygen via nasal cannula. GENERAL: The patient is well-developed, well-nourished obese white female in no acute distress. Awake, alert, and oriented x3. SKIN: No rashes or hives. HEENT: Head: Normocephalic and atraumatic. There is no xanthelasma. Oral mucosa is pink and moist. NECK: No JVD. CARDIAC: Regular rate and rhythm with no murmur, gallop, rub, or lift appreciated. PULMONARY: Clear to auscultation bilaterally without wheezes, rhonchi, or accessory muscle use. ABDOMEN: Soft, nontender, and nondistended. Positive bowel sounds x4. The abdominal aorta is not enlarged. EXTREMITIES: No clubbing or cyanosis. There is trace edema in the left lower extremity in a boot. DISCHARGE MEDICATIONS 1. Albuterol two puffs q.4h p.r.n. 2. Symbicort 260/4.5 two inhalations b.i.d. 3. Lyrica 300 mg b.i.d. 4. Coreg 12.5 mg twice daily 5. Lasix 40 mg twice daily 6. Insulin R t.i.d. as taken at home 7. Zyloprim 100 mg daily 8. Singulair 10 mg daily 9. Aspirin 81 mg daily 10. Plavix 75 mg daily 11. Omeprazole 20 mg daily 12. Potassium 10 mEq twice daily 13. Imdur 30 mg daily 14. Vitamin D3 50,000 units on Mondays Ms. Lucas's case is discussed with Dr. Oneil Cruz and Dr. Palomo. She will be discharged home. She will follow up with Dr. Cruz in two weeks. Her outpatient stress test will likely be performed should she remain stable. Dictated by... Ronel Lin.A.C. for Oneil Cruz M.D. CMG/[place] TD: 06/09/2017 09:49 JOB #: [id number] Unit #: [id number] #: [id number] Patient: MARY KATE LUCAS DISCHARGE SUMMARY Page 1 of 1 X X DISCHARGE SUMMARY
--- NOTE | ~2017-06-03 | CO ---
Unit #: [id number] #: [id number] Patient: MARY KATE LUCAS [id number] [address] [place], [place] [address] [id number] MR#: [id number] NAME: MARY KATE LUCAS ROOM: [facility] Age: 51 Sex: F Admission Date: 06/04/2017 : 1965 Attending Physician: Oneil Cruz M.D. Primary Care Physician: Gladys Parisi M.D. Consultation Date: 06/04/2017 CONSULTATION REPORT REASON FOR CONSULT Diabetic management, uncontrolled diabetes. HISTORY OF PRESENT ILLNESS Ms. Lucas is a 51-year-old morbidly obese female with multiple medical problems, came with a complaint of chest pain, which started few days ago. She was also having some shortness of breath. Chest pain has improved, but shortness of breath is still persistent. She has been wheezing at home. She does not use oxygen at home. She does use nebulizer, although she ran out of her nebulizer medication. Her sugars have been uncontrolled. She uses 100 units of insulin at home. According to her, it has been running high even at home. Does not complain of any dysuria. She does complain of polyuria. No complaint of abdominal pain, nausea, or vomiting. PAST MEDICAL HISTORY 1. History of diabetes mellitus. 2. History of coronary artery disease. 3. Hyperlipidemia. 4. Peripheral arterial disease. 5. Chronic obstructive pulmonary disease. 6. Reformed tobacco abuse. 7. Left foot fracture, in the boot right now. 8. Morbid obesity. 9. Obstructive sleep apnea. PAST SURGICAL HISTORY Multiple surgeries in the past; left shoulder surgery, left ankle surgery, , I and D and cardiac cath. ALLERGIES Pitocin. HOME MEDICATIONS As per med rec, which has been reviewed. FAMILY HISTORY Coronary artery disease is present. SOCIAL HISTORY The patient has past history of smoking, quit in 2014. No alcohol abuse. PHYSICAL EXAMINATION GENERAL: The patient is lying in bed, does not seem to be in any Unit #: [id number] #: [id number] Patient: MARY KATE LUCAS respiratory distress. VITAL SIGNS: Blood pressure is 114/98, respiratory rate 14, pulse is 87, temperature 97.5, oxygen saturation is 95%. HEENT: Head is normocephalic. Eye movements are normal. CHEST: Fair air entry. Some wheezing is heard bilaterally. CVS: Regular rhythm. ABDOMEN: Obese. EXTREMITIES: Left foot is in the boot. DIAGNOSTIC STUDIES LABORATORY RESULTS: So far shows WBC 9.6, hemoglobin 12.2, hematocrit 35.6, and platelet count of 191. Troponin is less than 0.05. Sodium 132, potassium 3.8, chloride 99, glucose 472. BUN 18, creatinine 1.0. Liver enzymes are stable. TSH is 1.88. Urinalysis shows 4+ bacteria. ASSESSMENT AND PLAN 1. Atypical chest pain. Workup is as per Cardiology. Acute myocardial infarction has been ruled out. 2. Acute chronic obstructive pulmonary disease exacerbation. The patient is being started on bronchodilators. Nebulizer treatment to be continued. Dr. Ferreira has been consulted. 3. Diabetes mellitus, which is totally out of control. Accu-Chek a.c. and h.s. with insulin sliding scale. The patient's medications have been changed. We are going to start Levemir 40 units subcu b.i.d. and Humalog 10 units subcu t.i.d. with meals. Hemoglobin A1c will be done. A diabetic diet has been advised. Diet counseling done at length with the patient. 4. Hypertension, which is stable. Continue home medication. 5. Possible urinary tract infection with urinalysis. Positive for 4+ bacteria. The patient is being started on IV antibiotics and culture will be done. 6. Hyperlipidemia, continue home medications. Plan of care has been discussed with the patient. Thank you, Dr. Cruz, for consulting us on this pleasant patient. We will continue to follow the patient along with you during the hospitalization. Dictated by... Shayy Covarrubias TD: 06/05/2017 02:07 JOB #: [id number] CONSULTATION REPORT Page 1 of 1 X Dianne Pelayo MD CONSULTATION REPORT
--- NOTE | ~2017-06-03 | EKG ---
PATIENT: MARY KATE LUCAS UNIT #: [id number] Ventricular Rate: 87 BPM Atrial Rate: 87 BPM P-R Interval: 172 ms QRS Duration: 80 ms Q-T Interval: 390 ms QTC Calculation(Bezet): 469 ms P Wren: 50 degrees Calculated R Wren: 46 degrees Calculated T Wren: 19 degrees Diagnosis Line: Normal sinus rhythm Diagnosis Line: Normal ECG Diagnosis Line: When compared with ECG of 03-JUN-2017 21:37, Diagnosis Line: (unconfirmed) Diagnosis Line: Nonspecific T wave abnormality no longer evident Diagnosis Line: in Lateral leads Diagnosis Line: Confirmed by ASIA SOSA MD ([id number]) on 06/04/2017 Diagnosis Line: 6:03:29 PM INTERPRETING MD: IAN HOLM
[~2017-06-03 21:29] MED LIST changes: -CHEWABLE ASPIRI81 MG PO; -IMDUR-ER30 MG PO; -K-DUR10 MEQ PO; -TRESIBA FL100 UNIT/1 SUBQ
[2017-06-03 23:33] LABS: BASOPHIL# 0.1 X10e3 (0-0.3); BASOPHIL% 0.7 % (0-2.5); DIFF IND NO; EOSINOPHIL# 0.5 X10e3 (0-0.7); EOSINOPHIL% 5.5 % (0.0-7.0); HEMATOCRIT 35.6 % (35.0-45.0); LYMPHOCYTE# 1.9 X10e3 (1.0-3.5); LYMPHOCYTE% 19.6 % (17.0-45.0); MEAN CELL VOLUME 84.5 FL (83-96); MEAN CORPUSCULAR HEMOGLOBIN 28.5 PG (28-34); MEAN CORPUSCULAR HGB CONC 33.8 g/dL (30-36); MEAN PLATELET VOLUME 9.4 FL (6.5-11.5); MONOCYTE# 0.6 X10e3 (0-1.0); MONOCYTE% 6.4 % (3.0-12.0); NEUTROPHIL# 6.5 X10e3 (1.5-7.1); NEUTROPHIL% 67.8 % (40-75); PLATELET COUNT 191 X10e3 (140-420); RED BLOOD COUNT 4.22 X10e (3.90-5.30); RED CELL DISTRIBUTION WIDTH 14.2 % (11.0-15.5); WHITE BLOOD COUNT 9.6 X10e3 (4.0-10.5)
[2017-06-03 23:42] LABS: POC - CKMB 3.4 ng/mL (0.0-7.9); POC - TROPONIN <0.05 ng/mL (<=0.05)
[2017-06-03 23:52] LABS: ALBUMIN SERUM 3.1 g/dL (3.5-5.0); BILIRUBIN, DIRECT 0.1 mg/dL (0.0-0.2); BILIRUBIN,INDIRECT 0.6 mg/dL (0.0-0.9); BILIRUBIN,TOTAL 0.7 mg/dL (0.2-2.0); CALCIUM SERUM 8.4 mg/dL (8.4-10.2); GLOM FILT RATE Estimated 65.2 mL/min (>60); MAGNESIUM 2.1 mg/dL (1.6-3.0); POTASSIUM 3.8 mmol/L (3.5-5.1); PROTEIN TOTAL SERUM 6.4 g/dL (6.0-8.3)
[2017-06-04 01:50] LABS: POC - CKMB 3.6 ng/mL (0.0-7.9); POC - TROPONIN <0.05 ng/mL (<=0.05)
[2017-06-04 11:11] LABS: %MB 3.4 % (0.0-4.0); MB 3.7 ng/ml
[2017-06-04 13:22] LABS: URINE APPEARANCE CLOUDY; URINE BILIRUBIN NEG (NEG); URINE BLOOD 1+ (NEG); URINE COLOR YELLOW; URINE GLUCOSE >1000 MG/DL (NEG); URINE KETONE NEG (NEG); URINE LEUKOCYTE ESTERASE TRACE (NEG); URINE NITRATE NEG (NEG); URINE PROTEIN 3+ (NEG); URINE SPECIFIC GRAVITY 1.025 (1.003-1.035); URINE UROBILINOGEN 0.2 MG/DL (NEG)
[2017-06-04 13:26] LABS: URINE BACTERIA AUWI 4+ (NEGATIVE); URINE SQUAMOUS EPITHELIAL CELL NONE SEEN /[HPF]; UWBCS1 AUWI 25-50 (0-5)
[2017-06-04 15:51] LABS: %MB 3.7 % (0.0-4.0); MB 3.7 ng/ml
[2017-06-04 17:59] LABS: BUN/CREATININE RATIO 14.54; CALCIUM SERUM 8.4 mg/dL (8.4-10.2); CREATININE SERUM 1.1 mg/dL (0.6-1.4); GLOM FILT RATE Estimated 58.1 mL/min (>60); POTASSIUM 4.6 mmol/L (3.5-5.1)
[2017-06-05 07:10] LABS: BUN/CREATININE RATIO 15.83; CALCIUM SERUM 8.3 mg/dL (8.4-10.2); CREATININE SERUM 1.2 mg/dL (0.6-1.4); GLOM FILT RATE Estimated 52.3 mL/min (>60); MAGNESIUM 1.7 mg/dL (1.6-3.0); POTASSIUM 3.5 mmol/L (3.5-5.1)
[2017-06-06 06:37] LABS: BUN/CREATININE RATIO 19.23; CREATININE SERUM 1.3 mg/dL (0.6-1.4); GLOM FILT RATE Estimated 47.5 mL/min (>60); MAGNESIUM 1.7 mg/dL (1.6-3.0); POTASSIUM 3.5 mmol/L (3.5-5.1)
[2017-06-07 06:15] LABS: BUN/CREATININE RATIO 22.5; CALCIUM SERUM 8.1 mg/dL (8.4-10.2); CREATININE SERUM 1.2 mg/dL (0.6-1.4); GLOM FILT RATE Estimated 52.3 mL/min (>60); MAGNESIUM 1.7 mg/dL (1.6-3.0); POTASSIUM 3.4 mmol/L (3.5-5.1)
[2017-06-08 07:06] LABS: BUN/CREATININE RATIO 27.5; CALCIUM SERUM 8.3 mg/dL (8.4-10.2); CREATININE SERUM 1.2 mg/dL (0.6-1.4); GLOM FILT RATE Estimated 52.3 mL/min (>60); POTASSIUM 3.8 mmol/L (3.5-5.1)
[2017-06-08] MEDS ORDERED: CHEWABLE ASPIRI81 MG PO (14:48)
[2017-06-08] MEDS ORDERED: K-DUR10 MEQ PO (14:51)
[2017-06-08] MEDS ORDERED: IMDUR-ER30 MG PO (14:52)
[2017-07-02] MEDS ORDERED: TRESIBA FL100 UNIT/1 SUBQ (18:16)
== END 2017-06-08 16:00 | disposition home or self-care (01) | DRG 291 ==
LOC: CED 21:29 → CEDOF 06-04 00:37 → C3A PCU 06-04 00:37 → CEDOF 06-04 00:42 → CED 06-04 00:42 → C3A PCU 06-04 09:28 → CEDOF 06-04 09:28 → C3A PCU 06-04 09:28
PROVIDERS: Emergency Medicine; Nurse Practitioner
PROC: B246YZZ Ultrasonography of Right and Left Heart using Other Contrast (ICD-10-PCS; principal; 2017-06-04)
DX: I11.0 Hypertensive heart disease with heart failure (principal); J96.21 Acute and chronic respiratory failure with hypoxia; E11.51 Type 2 diabetes mellitus with diabetic peripheral angiopathy without gangrene; E66.01 Morbid (severe) obesity due to excess calories; E11.65 Type 2 diabetes mellitus with hyperglycemia; I27.2 Other secondary pulmonary hypertension; J44.1 Chronic obstructive pulmonary disease with (acute) exacerbation; N39.0 Urinary tract infection, site not specified; I50.33 Acute on chronic diastolic (congestive) heart failure; I25.10 Atherosclerotic heart disease of native coronary artery without angina pectoris; E78.5 Hyperlipidemia, unspecified; G47.33 Obstructive sleep apnea (adult) (pediatric); Z68.35 Body mass index [BMI] 35.0-35.9, adult; R07.89 Other chest pain; I08.2 Rheumatic disorders of both aortic and tricuspid valves; Z87.891 Personal history of nicotine dependence; Z88.8 Allergy status to other drugs, medicaments and biological substances; Z82.49 Family history of ischemic heart disease and other diseases of the circulatory system; Z86.73 Personal history of transient ischemic attack (TIA), and cerebral infarction without residual deficits; Z79.02 Long term (current) use of antithrombotics/antiplatelets; Z79.4 Long term (current) use of insulin
CPT/HCPCS: 36415; 71010; 80048; 80076; 81003; 82550; 82553; 82947; 83036; 83735; 84443; 84484; 85025; 87086; 93005; 93306; 94640; 94664; 94760; 97162; 97165; 99285; G8987-GO; G8988-GO; G8989-GO; G8990-GP; G8991-GP; G8992-GP; J0696; J1815